=== PATIENT | female | born 1945 ===

== ENCOUNTER → 2016-12-22 | Day surgery (SDC) | payer MEDICARE ==
[~2016-12-22] VITALS: Ht 167.6 cm; Wt 82.9 kg
[~2016-12-22] MED LIST: LEVOTHROID (SY50 MCG PO; PRILOSEC20 MG PO; TOPROL XL 5050 MG PO; TYLENOL EXTRA500 MG PO
== END ==
LOC: GPOC 12-03 15:00 → GOPP 12-06 07:00 → GSIP 12-06 07:00 → GPOC 12-06 07:00 → GEND 12-06 07:00 → GPOC 12-06 15:00 → GEND 08:17
PROC: 0DB58ZZ Excision of Esophagus, Via Natural or Artificial Opening Endoscopic (ICD-10-PCS; principal; 2016-12-22)
PROC: 0D758ZZ Dilation of Esophagus, Via Natural or Artificial Opening Endoscopic (ICD-10-PCS; 2016-12-22)
DX: R13.10 Dysphagia, unspecified (principal); I48.91 Unspecified atrial fibrillation; E03.9 Hypothyroidism, unspecified; I10 Essential (primary) hypertension; I34.8 Other nonrheumatic mitral valve disorders; E78.00 Pure hypercholesterolemia, unspecified; Z90.49 Acquired absence of other specified parts of digestive tract; Z98.890 Other specified postprocedural states; E89.0 Postprocedural hypothyroidism; Z88.2 Allergy status to sulfonamides; Z87.891 Personal history of nicotine dependence; Z79.52 Long term (current) use of systemic steroids
CPT/HCPCS: C1726; J2001; J7030